=== PATIENT | female | born 1990 | race Caucasian/White ===

== ENCOUNTER 2020-06-22 23:20 | Emergency (ER) | payer SELFPAY ==
[~2020-06-22] VITALS: Ht 167.6 cm; Wt 63.5 kg
[2020-06-23 00:03] LABS: BASO % 0.3 % (0.0-1.0); EOS # 0.2 10*3/uL (0.0-0.4); EOS % 2.8 % (1.0-4.0); HEMATOCRIT 38.2 % (37.0-47.0); LYMPH % 27.6 % (27.0-41.0); MEAN CELL VOLUME 82.3 fl (81.0-99.0); MEAN PLATELET VOLUME 10.2 fl (9.6-12.3); MONO # 0.4 10*3/uL (0.1-1.0); MONO % 5.8 % (3.0-9.0); NEUT # 4.6 10*3/uL (2.3-7.9); NEUT % 63.4 % (47.0-73.0); PLATELET COUNT AUTOMATED 211 10*3/uL (130-400); RED BLOOD COUNT 4.64 10*6/uL (4.10-5.10); WHITE BLOOD COUNT 7.2 10*3/uL (4.8-10.8)
[2020-06-23 00:21] LABS: ALKALINE PHOSPHATASE 59 U/L (45-117); BUN 20 mg/dl (7-24); CHLORIDE 110 mmol/L (98-107); CREATININE 0.99 mg/dL (0.55-1.02); POTASSIUM 3.6 mmol/L (3.5-5.1); SGOT/AST 19 IU/L (3-35); SGPT/ALT 65 U/L (12-78); SODIUM 135 mmol/L (136-145); TOTAL PROTEIN 7.4 gm/dL (6.4-8.2)
[2020-06-23 00:26] LABS: TROPONIN I < 0.015 ng/ml (<0.045)
[2020-06-23 00:53] LABS: BILIRUBIN NEGATIVE; BLOOD NEGATIVE (NEGATIVE); CLARITY CLEAR (CLEAR); COLOR YELLOW (YELLOW); GLUCOSE NEGATIVE; KETONE NEGATIVE; LEUKO ESTERASE 1+ (NEGATIVE); NITRITE NEGATIVE (NEGATIVE); UROBILINOGEN 0.2 E.U./dl (0.0-1.0)
[2020-06-23 00:54] LABS: BACTERIA 1+
== END 2020-06-23 02:11 | disposition home or self-care (01) ==
LOC: ED 23:20
PROVIDERS: Emergency Medicine
DX: R07.9 Chest pain, unspecified (principal); F41.9 Anxiety disorder, unspecified